=== PATIENT | male | born 1980 | race Caucasian/White ===

== ENCOUNTER → 2018-03-21 | Outpatient (CLI) | payer BC, OTHER ==
--- NOTE | 2018-03-21 14:35 | RADIOLOGY REPORT (SQ) ---
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 TECHNIQUE: Multiplanar imaging includes noncontrasted T1, T2, FLAIR, diffusion with ADC map and post gadolinium contrast T1 sequences. Images stored on PACS. CONTRAST TYPE AND DOSE: 20 mL Dotarem. RENAL FUNCTION: None required. The patient is less than 50 years old. LIMITATIONS: None. FINDINGS: ANATOMY: No anomalies. Normal vascular flow voids. Pituitary fossa normal. CSF SPACES: Normal in size and contour. No hemorrhage. CEREBRUM: Sulci and gyri normal in size and contour. Occasional small areas of increased white matte r signal on FLAIR imaging. No evidence of hemorrhage, mass, or extraaxial fluid collection. No abnorm al enhancement post contrast. POSTERIOR FOSSA: No signal alteration. No hemorrhage. No edema, masses, or mass effect. Internal fabien tory canals, cerebellopontine angles, mastoids normal. No enhancing lesions. No abnormal enhancement post contrast. DIFFUSION IMAGING: Negative for acute or subacute infarction. ORBITS: No masses. Globes normal. PARANASAL SINUSES: Prominent mucous retention cyst in the left maxillary sinus. OTHER: No other significant finding. IMPRESSION: 1. Minimal chronic microvascular ischemia with no acute intracranial imaging findings. 2. Left maxillary sinus disease. EVIDENCE OF ACUTE STROKE: NO. TECHNICAL DOCUMENTATION: JOB ID: [id number] [employer]- All Rights Reserved Reading location - IP/workstation name: [email or web address] ARMANDO
--- NOTE | 2018-03-21 14:53 | RADIOLOGY REPORT (SQ) ---
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 TECHNIQUE: Dynamic and static grayscale images acquired of the kidneys and bladder and recorded on P ACS. Additional selected color Doppler and spectral images recorded. LIMITATIONS: None. FINDINGS: RIGHT KIDNEY: Normal size, 10.9 x 5.5 x 5.3 cm. Normal echogenicity. No solid or suspici ous masses. No hydronephrosis. Cannot exclude a couple small intrarenal calculi. LEFT KIDNEY: Normal size, 12.2 x 6.3 x 5.6 cm. . Normal echogenicity. No solid or suspicious masses . No hydronephrosis. No calcifications. BLADDER: The urinary bladder is distended and has a volume of 652 cc. OTHER FINDINGS: No other significant finding. IMPRESSION: Distended urinary bladder. Cannot exclude a couple of small nonobstructing intrarenal c alculi on the right. No renal mass is identified. TECHNICAL DOCUMENTATION: JOB ID: [id number] [employer]- All Rights Reserved Reading location - IP/workstation name: [email or web address]
--- NOTE | 2018-03-21 21:05 | XCELERA REPORT ---
[address] [address] Transthoracic Echocardiogram Report Name: TEJA JOHNS Age: 37 yrs Gender: Male : 1980 Patient Status: Outpatient Patient Location: [facility] Study Date: 03/21/2018 03:44 PM Reason For Study: ATRAIL MYXOMAL Ordering Physician: DEEPTHI BURNS Performed By: Shira Fry Interpretation Summary Exercise Physiologist Certified commented difficult study due to body [id number] 5'6". GE machine images consistently suboptimal No Apical 2 chamber view perhaps result of difficult imaging.. RH not visualised to get TR to derive RVSP. Normal Ao root, not dilated. AV poor visualisation, probably 3 cusps, no , no AR. No mitral annular calcification, mp MS, no MVP, and no MR , borderline enlarged LA based only on M-mode measurement 42 mm. Inadequate LA visualisation in apical 4 chamber view to do LENNY claculation, and to totally r/o LA myxoma, and no RA visualisation in apical 4 chamber view to r/o RA myxoma. Overall not suspicious of LA myxoma. Mild LVH with normal LVEF and no LV diastolic dysfunction. Incomplete LV segmental analysis, no LV enlargement. MMode/2D Measurements & Calculations RVDd: 3.2 cm LVIDd: 5.3 cm FS: 41.5 % Ao root diam: 3.3 cm IVSd: 0.97 cm LVIDs: 3.1 cm EDV(Teich): 134.3 ml Ao root area: 8.5 cm2 LVPWd: 1.1 cm ESV(Teich): 37.6 ml EF(Teich): 72.0 % Doppler Measurements & Calculations MV E max kirby: MV dec slope: Ao V2 max: LV V1 max P.2 cm/sec 110.8 cm/sec 3.7 mmHg MV A max kirby: 574.4 cm/sec2 Ao max PG: LV V1 max: 56.5 cm/sec MV dec time: 0.14 sec 4.9 mmHg 96.5 cm/sec MV E/A: 1.5 PA V2 max: 100.5 cm/sec PA max P.0 mmHg I WMSI = 1.00 % Normal = 100 Segments Size X - Cannot 1 - Normal 2 - 3 - Akinetic4 - 1-2 small Interpret Hypokinetic Dyskinetic 3-5 moderate 5 - 6-14 large Aneurysmal 15-16 diffuse : DEEPTHI BURNS > Piyush Zavaleta
== END ==
LOC: RAD 12:47
PROVIDERS: ATTEND Specialist
DX: G40.909 Epilepsy, unspecified, not intractable, without status epilepticus (principal); D3A.0 Benign carcinoid tumors; D15.1 Benign neoplasm of heart
CPT/HCPCS: 93306; 70553; 76770; A9576